=== PATIENT | female | born 1990 | race Caucasian/White ===

== ENCOUNTER 2017-06-21 12:51 | Emergency (ER) | payer OTHER ==
[2017-06-21 13:05] VITALS: RESP 16; TEMP 98
[2017-06-21] MEDS ORDERED: Tmp-Smz 800 mg-160 mg DS Tab PO STA (14:49)
--- NOTE | 2017-06-21 14:52 | C.PDOC ---
History Of Present Illness 26 year old female presents to the ER with a complaint of rectal pain and swelling for the past few days. Denies Hx of similar symptoms, fever, abdominal pain, straining, rectal bleeding, or discharge. Time Seen by Provider: 06/21/17 13:38 Chief Complaint (Nursing): Abnormal Skin Integrity History Per: Patient History/Exam Limitations: no limitations Onset/Duration Of Symptoms: Days Current Symptoms Are (Timing): Still Present Quality Of Symptoms: Painful, Swollen Recent travel outside of the [place]: No Past Medical History Reviewed: Historical Data, Nursing Documentation, Vital Signs Vital Signs: Last Vital Signs Temp 98 F 06/21/17 13:03 Pulse 88 06/21/17 14:55 Resp 16 06/21/17 14:55 BP 116/81 06/21/17 14:55 Pulse Ox 99 06/21/17 21:42 Family History: States: Unknown Family Hx - Social History Hx Alcohol Use: No Hx Substance Use: No Review Of Systems Constitutional: Negative for: Fever, Chills Gastrointestinal: Positive for: Rectal Pain (w/ swelling). Negative for: Abdominal Pain, Other (Rectal bleeding) Physical Exam - Physical Exam Appears: Well, Non-toxic, No Acute Distress Skin: Warm, Dry Head: Atraumatic, Normacephalic Eye(s): bilateral: Normal Inspection, EOMI Nose: Normal Oral Mucosa: Moist Neck: Normal ROM, Supple Chest: Symmetrical Respiratory: No Accessory Muscle Use Gastrointestinal/Abdominal: Soft, No Tenderness Rectal: No Hemorrhoids, Other (Induration and tenderness to left gluteal area adjacent to anus, no fluctuance) Neurological/Psych: Oriented x3, Normal Speech ED Course And Treatment O2 Sat by Pulse Oximetry: 99 Progress Note: Motrin administered for pain. Patient started on bactrim and advised to follow up in 2 days for wound check. Patient seen and evaluated by Dr. Chahal at bedside who agrees with treatment plan. Disposition - Disposition Disposition: HOME/ ROUTINE Disposition Time: 14:50 Condition: STABLE Additional Instructions: Apply warm compresses. Wound check in 2-3 days. Return to ER if symptoms persist or worsen. Prescriptions: Cephalexin [cephalexin] 500 mg PO BID #14 cap Ibuprofen [Motrin] 600 mg PO Q6 PRN #20 tab PRN Reason: Pain, Mild (1-3) Sulfamethoxazole/Trimethoprim [Bactrim DS 800 mg-160 mg] 1 tab PO BID #14 tab Instructions: Cellulitis (Skin Infection), Adult (DC) Forms: [employer] ([place]) - Clinical Impression Clinical Impression: Cellulitis - PA / [employer] / Resident Statement MD/DO has reviewed & agrees with the documentation as recorded. - Scribe Statement The provider has reviewed the documentation as recorded by the Scribe Chad Drake All medical record entries made by the Scribe were at my direction and personally dictated by me. I have reviewed the chart and agree that the record accurately reflects my personal performance of the history, physical exam, medical decision making, and the department course for this patient. I have also personally directed, reviewed, and agree with the discharge instructions and disposition.
[2017-06-21 14:56] VITALS: BP 116/81; PULSE 88
[2017-06-21] MEDS ORDERED: Tmp-Smz 800 mg-160 mg DS Tab ONE (15:00)
[2017-06-21 21:40] VITALS: O2SAT 99
== END 2017-06-21 15:07 | disposition home or self-care (01) ==
LOC: C.ER 12:51
DX: L03.317 Cellulitis of buttock (principal)